=== PATIENT | male | born 1995 | race African-American/Black ===

== ENCOUNTER 2016-07-18 18:06 | Emergency (ER) | payer MEDICAID ==
[~2016-07-18] VITALS: Ht 172.7 cm; Wt 113.0 kg
[2016-07-18] MEDS ORDERED: ACETAMINOPHEN WITH CODEINE 300/30MG TABLET PO ONE (19:30)
[2016-07-18 20:10] VITALS: BP 127/76
== END 2016-07-18 20:30 | disposition home or self-care (01) ==
LOC: ER 19:25
DX: S80.11XA Contusion of right lower leg, initial encounter (principal); V89.2XXA Person injured in unspecified motor-vehicle accident, traffic, initial encounter; W22.11XA Striking against or struck by driver side automobile airbag, initial encounter; Y93.89 Activity, other specified; Y92.89 Other specified places as the place of occurrence of the external cause; Y99.8 Other external cause status
CPT/HCPCS: 99283